=== PATIENT | male | born 1965 | race African-American/Black ===

== ENCOUNTER 2016-11-14 05:15 | Inpatient (IN) | payer OTHER ==
[~2016-11-14] VITALS: Ht 182.9 cm; Wt 60.3 kg
[~2016-11-14 05:15] MED LIST: ASPI-1093 PO; CARB100C4 PO; CARV6 PO; FURO40 PO; ISOS1TAB2 PO; PROM12.510 PO
[2016-11-14 06:23] LABS: EOSINOPHILS % (AUTO) 0 % (1.0-6.0); HEMATOCRIT 38.8 % (41-53); HEMOGLOBIN 11.7 g/dL (13.5-17.5); LYMPHOCYTES # (AUTO) 0.9 K/uL (1.0-4.8); LYMPHOCYTES % (AUTO) 9.7 % (22.0-44.0); MEAN CORPUSCULAR HEMOGLOBIN 23.8 pg (26.0-34.0); MEAN CORPUSCULAR HGB CONC 30.3 G/dL (31.0-37.0); MEAN CORPUSCULAR VOLUME 79 fL (80-100); MONOCYTES # (AUTO) 0.8 K/uL (0.1-1.0); NEUTROPHILS # (AUTO) 7.1 K/uL (1.8-7.7); NEUTROPHILS % (AUTO) 81.3 % (40.0-70.0); PLATELET COUNT (AUTO) 155 K/uL (150-450); RED BLOOD CELL COUNT(AUTO) 4.92 MIL/uL (4.50-5.90); RED CELL DISTRIBUTION WIDTH 22.7 % (11.5-14.5); WHITE BLOOD COUNT (AUTO) 8.8 K/uL (4.5-11.0)
[2016-11-14 06:36] LABS: INR 2.3 (0.9-1.1); PROTHROMBIN TIME 24.1 SEC (9.4-11.6)
[2016-11-14 06:41] LABS: ANION GAP 21 mmol/L (8-16); CARBON DIOXIDE 18 mmol/L (22-29); CHLORIDE 109 mmol/L (98-107); CREATININE 3.06 mg/dL (0.60-1.30); GLOMERULAR FILTR. RATE CALC 26 mL/min (>60); POTASSIUM 4.6 mmol/L (3.5-5.1); SODIUM SERUM 148 mmol/L (136-145); UREA NITROGEN, BLOOD 82 mg/dL (7-18)
[2016-11-14] MEDS ORDERED: NITROGLYCERIN 2% (1 GM=INCH) PACKET TP ONE (07:00)
[2016-11-14] MEDS ORDERED: ASPIRIN 325 MG EC TABLET PO ONE (07:00)
[2016-11-14] MEDS ORDERED: FUROSEMIDE 40 MG/4 ML VIAL IVP ONE ×2 (07:00→19:00)
[2016-11-14 07:06] LABS: ALANINE AMINOTRANSFERASE 93 U/L (12-78); ALBUMIN 3.2 g/dL (3.4-5.0); ASPARTATE AMINOTRANSFERASE 75 U/L (15-37); CREATINE KINASE MB 13.2 ng/mL (0-5); CREATINE KINASE, TOTAL 465 U/L (39-308); TOTAL PROTEIN, SERUM 6.3 g/dL (6.4-8.2)
[2016-11-14 07:12] LABS: B-TYPE NATRIURETIC PEPTIDE > 5000 pg/mL (0-100)
[2016-11-14] MEDS ORDERED: ONDANSETRON HCL 4 MG/2 ML VIAL IVP PRN ×2 (07:45→11:45)
[2016-11-14] MEDS ORDERED: 0.9% SODIUM CHLORIDE 10 ML SYRINGE IVP PRN (07:45)
[2016-11-14] MEDS ORDERED: ACETAMINOPHEN 325 MG TABLET PO PRN ×2 (07:45→11:45)
[2016-11-14 07:59] LABS: APPEARANCE,URINE CLEAR (CLEAR); GLUCOSE, URINE (UA) NEGATIVE (NEGATIVE); KETONES,URINE NEGATIVE (NEGATIVE); LEUKOCYTE ESTERASE ,URINE NEGATIVE (NEGATIVE); OCCULT BLOOD,URINE NEGATIVE (NEGATIVE); PROTEIN,URINE POS 1+ (NEGATIVE)
[2016-11-14 08:03] LABS: ADD UA MICROSCOPIC NO
[2016-11-14 08:31] LABS: RBC MORPHOLOGY COMMENT ABNORMAL RBC MORPH
[2016-11-14] MEDS ORDERED: HYDROCODONE/ACETAMINOPHEN 5-325 MG TABLET PO PRN (11:45)
[2016-11-14] MEDS ORDERED: BISACODYL 10 MG RECTAL RECTAL SUPPOSITORY PR PRN (11:45)
[2016-11-14] MEDS ORDERED: MAGNESIUM HYDROXIDE SUSPENSION 30 ML UDCUP PO PRN (11:45)
[2016-11-14] MEDS ORDERED: MORPHINE SULFATE 2 MG/ML SYRINGE IVP PRN (11:45)
[2016-11-14] MEDS ORDERED: ZOLPIDEM TARTRATE 5 MG TABLET PO PRN (11:45)
[2016-11-14] MEDS ORDERED: PROM25 PO (11:49)
[2016-11-14] MEDS ORDERED: HEPARIN SODIUM 25000 UNITS/D5W 250 ML IV PRN (12:29)
[2016-11-14] MEDS ORDERED: HEPARIN SODIUM,PORCINE 5,000 UNITS/ML VIAL IVP PRN ×2 (13:00)
[2016-11-14 14:35] LABS: ABG A-A DIFF O2 104.3 mmHg (10-20.0); ABG BASE EXCESS -11.8 mmol/L (-2.0-3.0); ABG HCO3 16.9 mmol/L (22.0-26.0); ABG OXYHEMOGLOBIN 96.3 % (94.0-100.0); ABG PH 7.457 (7.35-7.450); TEMPERATURE, FAHRENHEIT, BG 98.6 FAHREN (96.0-98.6)
[2016-11-14 14:36] LABS: ABG PCO2 18 mmHg (35-45)
[2016-11-14 14:37] LABS: IPAP, BG 14 cm H2O
[2016-11-14] MEDS ORDERED: HEPARIN SODIUM,PORCINE 5,000 UNITS/ML VIAL SQ SCH (16:00)
[2016-11-14 16:35] LABS: ABG A-A DIFF O2 28.1 mmHg (10-20.0); ABG BASE EXCESS -10.5 mmol/L (-2.0-3.0); ABG HCO3 17.7 mmol/L (22.0-26.0); ABG OXYHEMOGLOBIN 97.7 % (94.0-100.0); ABG PCO2 20 mmHg (35-45); ABG PH 7.442 (7.35-7.450); TEMPERATURE, FAHRENHEIT, BG 98.6 FAHREN (96.0-98.6)
[2016-11-14 16:36] LABS: ALLEN TEST, BLOOD GAS POS; IPAP, BG 14 cm H2O
[2016-11-14 17:32] VITALS: BP 120/89
[2016-11-14 20:24] VITALS: BP 117/62
[2016-11-14 20:32] LABS: PROTHROMBIN TIME 27.4 SEC (9.4-11.6)
[2016-11-14 20:33] LABS: INR 2.6 (0.9-1.1)
[2016-11-14] MEDS: DOCUSATE SODIUM 100 MG CAPSULE PO SCH (21:23)
[2016-11-14] MEDS: CARVEDILOL 6.25 MG TABLET PO SCH (21:41)
[2016-11-14] MEDS: ISOSORB DINIT/HYDRALAZINE HCL 20-37.5 MG TABLET PO SCH (21:42)
[2016-11-14 23:20] VITALS: BP 105/73
[2016-11-15] VITALS (7 sets, daily range): BP systolic 89–117; BP diastolic 55–84
[2016-11-15 04:17] LABS: EOSINOPHILS % (AUTO) 0 % (1.0-6.0); HEMATOCRIT 33.8 % (41-53); HEMOGLOBIN 10.8 g/dL (13.5-17.5); LYMPHOCYTES # (AUTO) 0.8 K/uL (1.0-4.8); MEAN CORPUSCULAR HEMOGLOBIN 24.3 pg (26.0-34.0); MEAN CORPUSCULAR HGB CONC 31.8 G/dL (31.0-37.0); MEAN CORPUSCULAR VOLUME 77 fL (80-100); MONOCYTES # (AUTO) 0.7 K/uL (0.1-1.0); MONOCYTES % (AUTO) 6.8 % (2.0-9.0); NEUTROPHILS # (AUTO) 8.4 K/uL (1.8-7.7); PLATELET COUNT (AUTO) 119 K/uL (150-450); RED BLOOD CELL COUNT(AUTO) 4.41 MIL/uL (4.50-5.90); RED CELL DISTRIBUTION WIDTH 22.7 % (11.5-14.5); WHITE BLOOD COUNT (AUTO) 9.9 K/uL (4.5-11.0)
[2016-11-15 04:21] LABS: NEUTROPHILS % (AUTO) 85.3 % (40.0-70.0)
[2016-11-15 06:56] LABS: ALBUMIN 2.9 g/dL (3.4-5.0); BILIRUBIN,TOTAL 2.6 mg/dL (0.1-1.0); CALCIUM, TOTAL 8.5 mg/dL (8.8-10.5); CREATININE 2.65 mg/dL (0.60-1.30); POTASSIUM 4.4 mmol/L (3.5-5.1); TOTAL PROTEIN, SERUM 5.6 g/dL (6.4-8.2)
[2016-11-15] MEDS: FUROSEMIDE 40 MG/4 ML VIAL IVP SCH ×2 (08:46→21:00)
[2016-11-15] MEDS: ISOSORB DINIT/HYDRALAZINE HCL 20-37.5 MG TABLET PO SCH (08:47)
[2016-11-15] MEDS: ASPIRIN 81 MG EC TABLET PO SCH (08:48)
[2016-11-15] MEDS: DOCUSATE SODIUM 100 MG CAPSULE PO SCH ×2 (08:48→21:34)
[2016-11-15] MEDS: PANTOPRAZOLE SODIUM 40 MG DR TABLET PO SCH (08:49)
[2016-11-15] MEDS: CarBAMazepine 100 MG CHEWABLE TABLET PO SCH (08:49)
[2016-11-15] MEDS: PROMETHAZINE HCL 25 MG TABLET PO SCH (08:49)
[2016-11-15] MEDS: CARVEDILOL 6.25 MG TABLET PO SCH ×2 (09:00→21:00)
[2016-11-15] MEDS ORDERED: ASPIRIN 81 MG EC TABLET PO SCH (09:00)
[2016-11-15 10:45] LABS: RBC MORPHOLOGY COMMENT ABNORMAL RBC MORPH
[2016-11-15] MEDS ORDERED: HEPARIN SODIUM,PORCINE 5,000 UNITS/ML VIAL IVP ONE (15:45)
[2016-11-15] MEDS ORDERED: HEPARIN SODIUM,PORCINE 5,000 UNITS/ML VIAL IVP PRN ×2 (15:45)
[2016-11-15 16:20] LABS: EOSINOPHILS # (AUTO) 0.01 K/uL (0.00-0.70); EOSINOPHILS % (AUTO) 0.09 % (1.0-6.0); HEMATOCRIT 33.3 % (41-53); HEMOGLOBIN 10.4 g/dL (13.5-17.5); LYMPHOCYTES # (AUTO) 0.4 K/uL (1.0-4.8); LYMPHOCYTES % (AUTO) 3.9 % (22.0-44.0); MEAN CORPUSCULAR HGB CONC 31.3 G/dL (31.0-37.0); MEAN CORPUSCULAR VOLUME 77 fL (80-100); MONOCYTES # (AUTO) 0.6 K/uL (0.1-1.0); NEUTROPHILS # (AUTO) 9.2 K/uL (1.8-7.7); RED BLOOD CELL COUNT(AUTO) 4.35 MIL/uL (4.50-5.90); RED CELL DISTRIBUTION WIDTH 22.2 % (11.5-14.5); WHITE BLOOD COUNT (AUTO) 10.2 K/uL (4.5-11.0)
[2016-11-15 16:21] LABS: NEUTROPHILS % (AUTO) 90.1 % (40.0-70.0)
[2016-11-15 16:30] LABS: INR 1.9 (0.9-1.1); PROTHROMBIN TIME 19.9 SEC (9.4-11.6)
[2016-11-15 16:41] LABS: PLATELET COUNT (AUTO) 121 K/uL (150-450)
[2016-11-15 16:42] LABS: RBC MORPHOLOGY COMMENT ABNORMAL RBC MORPH
[2016-11-15] MEDS ORDERED: 0.9% SODIUM CHLORIDE 10 ML SYRINGE IVP PRN (18:15)
[2016-11-15] MEDS: HEPARIN SODIUM 25000 UNITS/D5W 250 ML IV PRN (21:34)
[2016-11-15] MEDS: OXYGEN THERAPY IH SCH (21:47)
[2016-11-16 03:56] VITALS: BP 98/66
[2016-11-16 07:18] LABS: ALBUMIN 3.1 g/dL (3.4-5.0); BILIRUBIN,TOTAL 2.7 mg/dL (0.1-1.0); CALCIUM, TOTAL 8.8 mg/dL (8.8-10.5); CREATININE 2.82 mg/dL (0.60-1.30); POTASSIUM 4.5 mmol/L (3.5-5.1); TOTAL PROTEIN, SERUM 6.1 g/dL (6.4-8.2)
[2016-11-16 07:51] VITALS: BP 105/78
[2016-11-16 08:54] LABS: BASOPHILS # (AUTO) 0.02 K/uL (0.00-0.20); BASOPHILS % (AUTO) 0.2 % (0.0-2.0); EOSINOPHILS # (AUTO) 0.01 K/uL (0.00-0.70); EOSINOPHILS % (AUTO) 0.13 % (1.0-6.0); HEMATOCRIT 35.3 % (41-53); HEMOGLOBIN 11.2 g/dL (13.5-17.5); LYMPHOCYTES # (AUTO) 0.4 K/uL (1.0-4.8); LYMPHOCYTES % (AUTO) 3.9 % (22.0-44.0); MEAN CORPUSCULAR HEMOGLOBIN 24.3 pg (26.0-34.0); MEAN CORPUSCULAR HGB CONC 31.7 G/dL (31.0-37.0); MEAN CORPUSCULAR VOLUME 77 fL (80-100); MONOCYTES # (AUTO) 0.8 K/uL (0.1-1.0); MONOCYTES % (AUTO) 8.1 % (2.0-9.0); NEUTROPHILS # (AUTO) 8.2 K/uL (1.8-7.7); PLATELET COUNT (AUTO) 83 K/uL (150-450); RED BLOOD CELL COUNT(AUTO) 4.59 MIL/uL (4.50-5.90); RED CELL DISTRIBUTION WIDTH 22.6 % (11.5-14.5); WHITE BLOOD COUNT (AUTO) 9.4 K/uL (4.5-11.0)
[2016-11-16 08:56] LABS: NEUTROPHILS % (AUTO) 87.7 % (40.0-70.0)
[2016-11-16] MEDS: CARVEDILOL 6.25 MG TABLET PO SCH ×2 (09:00→20:33)
[2016-11-16] MEDS: DOCUSATE SODIUM 100 MG CAPSULE PO SCH ×2 (09:04→20:33)
[2016-11-16] MEDS: OXYGEN THERAPY IH SCH ×2 (09:04→20:33)
[2016-11-16] MEDS: PROMETHAZINE HCL 25 MG TABLET PO SCH (09:04)
[2016-11-16] MEDS: ASPIRIN 81 MG EC TABLET PO SCH (09:05)
[2016-11-16] MEDS: CarBAMazepine 100 MG CHEWABLE TABLET PO SCH (09:05)
[2016-11-16] MEDS: PANTOPRAZOLE SODIUM 40 MG DR TABLET PO SCH (09:05)
[2016-11-16] MEDS: FUROSEMIDE 40 MG/4 ML VIAL IVP SCH (09:08)
[2016-11-16 09:10] LABS: RBC MORPHOLOGY COMMENT ABNORMAL RBC MORPH
[2016-11-16] MEDS ORDERED: ALBUMIN HUMAN 25%-25GM/100ML 100 ML IV ONE (09:30)
[2016-11-16] MEDS: HEPARIN SODIUM 25000 UNITS/D5W 250 ML IV PRN ×2 (10:13→17:25)
[2016-11-16 10:52] VITALS: BP 114/80
[2016-11-16] MEDS ORDERED: *CLINICAL-WARFARIN SODIUM DOSING CLINICAL ONE ×2 (11:30)
[2016-11-16] MEDS ORDERED: WARFARIN SODIUM-INR 2.0-3.0-RX DOSING PER PROTOCOL PO PRN (12:15)
[2016-11-16 15:38] VITALS: BP 132/76
[2016-11-16 16:55] LABS: INR 1.8 (0.9-1.1); PROTHROMBIN TIME 19.4 SEC (9.4-11.6)
[2016-11-16] MEDS ORDERED: WARFARIN SODIUM 5 MG TABLET PO ONE (17:00)
[2016-11-16] MEDS ORDERED: WARFARIN SODIUM 2.5 MG TABLET PO ONE (18:00)
[2016-11-16 19:43] VITALS: BP 114/85
[2016-11-16 23:59] VITALS: BP 112/73
[2016-11-17] MEDS: HEPARIN SODIUM 25000 UNITS/D5W 250 ML IV PRN ×3 (02:02→12:28)
[2016-11-17 05:08] VITALS: BP 101/76
[2016-11-17 08:32] LABS: BASOPHILS % (AUTO) 0.1 % (0.0-2.0); EOSINOPHILS % (AUTO) 0 % (1.0-6.0); HEMOGLOBIN 11.1 g/dL (13.5-17.5); LYMPHOCYTES # (AUTO) 0.5 K/uL (1.0-4.8); LYMPHOCYTES % (AUTO) 5.2 % (22.0-44.0); MEAN CORPUSCULAR HGB CONC 30.9 G/dL (31.0-37.0); MEAN CORPUSCULAR VOLUME 78 fL (80-100); MONOCYTES # (AUTO) 0.9 K/uL (0.1-1.0); MONOCYTES % (AUTO) 9.8 % (2.0-9.0); NEUTROPHILS # (AUTO) 7.7 K/uL (1.8-7.7); NEUTROPHILS % (AUTO) 84.9 % (40.0-70.0); PLATELET COUNT (AUTO) 117 K/uL (150-450); RED BLOOD CELL COUNT(AUTO) 4.64 MIL/uL (4.50-5.90); RED CELL DISTRIBUTION WIDTH 22.4 % (11.5-14.5)
[2016-11-17 08:36] LABS: RBC MORPHOLOGY COMMENT ABNORMAL RBC MORPH
[2016-11-17 08:44] LABS: CALCIUM, TOTAL 8.8 mg/dL (8.8-10.5); CREATININE 3.09 mg/dL (0.60-1.30)
[2016-11-17] MEDS: FUROSEMIDE 40 MG/4 ML VIAL IVP SCH (09:00)
[2016-11-17 09:17] VITALS: BP 109/78
[2016-11-17 09:19] LABS: INR 2.2 (0.9-1.1); PROTHROMBIN TIME 22.8 SEC (9.4-11.6)
[2016-11-17] MEDS: OXYGEN THERAPY IH SCH ×2 (09:26→21:33)
[2016-11-17] MEDS: CARVEDILOL 6.25 MG TABLET PO SCH (09:26)
[2016-11-17] MEDS: DOCUSATE SODIUM 100 MG CAPSULE PO SCH ×2 (09:26→21:37)
[2016-11-17] MEDS: CarBAMazepine 100 MG CHEWABLE TABLET PO SCH (09:27)
[2016-11-17] MEDS: PROMETHAZINE HCL 25 MG TABLET PO SCH (09:27)
[2016-11-17] MEDS: ASPIRIN 81 MG EC TABLET PO SCH (09:27)
[2016-11-17] MEDS: PANTOPRAZOLE SODIUM 40 MG DR TABLET PO SCH (09:27)
[2016-11-17] MEDS: CARVEDILOL 3.125 MG TABLET PO SCH ×2 (10:23→21:37)
[2016-11-17 10:56] VITALS: BP 119/76
[2016-11-17 12:04] LABS: ALPHA-1 URINE (ELP) 1.3 %; ALPHA-2 URINE(ELP) 5.8 %; BETA URINE(ELP) 11.7 %; GAMMA URINE(ELP) 27.5 %; TOTAL PROTEIN URINE 7.8 mg/dL (Not Estab.)
[2016-11-17 15:09] VITALS: BP 128/73
[2016-11-17] MEDS ORDERED: WARFARIN SODIUM 1 MG TABLET PO ONE (17:00)
[2016-11-17 19:23] VITALS: BP 103/77
[2016-11-17 23:35] VITALS: BP 99/72
[2016-11-18] VITALS (9 sets, daily range): BP systolic 83–128; BP diastolic 63–78
[2016-11-18 06:30] LABS: CALCIUM, TOTAL 8.9 mg/dL (8.8-10.5); CREATININE 3.23 mg/dL (0.60-1.30); POTASSIUM 5.1 mmol/L (3.5-5.1)
[2016-11-18 08:20] LABS: PROTHROMBIN TIME 31.4 SEC (9.4-11.6)
[2016-11-18] MEDS: DOCUSATE SODIUM 100 MG CAPSULE PO SCH ×2 (08:58→21:32)
[2016-11-18] MEDS: OXYGEN THERAPY IH SCH ×2 (08:58→21:32)
[2016-11-18] MEDS: CARVEDILOL 3.125 MG TABLET PO SCH ×2 (08:58→21:32)
[2016-11-18] MEDS: PANTOPRAZOLE SODIUM 40 MG DR TABLET PO SCH (08:59)
[2016-11-18] MEDS: ASPIRIN 81 MG EC TABLET PO SCH (08:59)
[2016-11-18] MEDS: PROMETHAZINE HCL 25 MG TABLET PO SCH (08:59)
[2016-11-18] MEDS: CarBAMazepine 100 MG CHEWABLE TABLET PO SCH (08:59)
[2016-11-18] MEDS: FUROSEMIDE 40 MG/4 ML VIAL IVP SCH (09:00)
[2016-11-18] MEDS: DEXTROSE 5%-WATER 1,000 ML IV SCH (11:41)
[2016-11-19] MEDS: DEXTROSE 5%-WATER 1,000 ML IV SCH (03:54)
[2016-11-19 05:01] VITALS: BP 119/68
[2016-11-19 06:52] LABS: PROTHROMBIN TIME 46.5 SEC (9.4-11.6)
[2016-11-19 06:57] LABS: EOSINOPHILS % (AUTO) 0.2 % (1.0-6.0); HEMATOCRIT 38.4 % (41-53); HEMOGLOBIN 11.6 g/dL (13.5-17.5); LYMPHOCYTES # (AUTO) 0.6 K/uL (1.0-4.8); MEAN CORPUSCULAR HEMOGLOBIN 23.8 pg (26.0-34.0); MEAN CORPUSCULAR HGB CONC 30.3 G/dL (31.0-37.0); MEAN CORPUSCULAR VOLUME 79 fL (80-100); MONOCYTES # (AUTO) 0.7 K/uL (0.1-1.0); MONOCYTES % (AUTO) 7.5 % (2.0-9.0); NEUTROPHILS # (AUTO) 7.9 K/uL (1.8-7.7); PLATELET COUNT (AUTO) 100 K/uL (150-450); RED BLOOD CELL COUNT(AUTO) 4.89 MIL/uL (4.50-5.90); RED CELL DISTRIBUTION WIDTH 23.8 % (11.5-14.5)
[2016-11-19 07:00] LABS: INR 4.4 (0.9-1.1)
[2016-11-19 07:01] LABS: ALBUMIN 2.8 g/dL (3.4-5.0); BILIRUBIN,TOTAL 2.9 mg/dL (0.1-1.0); CALCIUM, TOTAL 8.5 mg/dL (8.8-10.5); CREATININE 3.86 mg/dL (0.60-1.30); POTASSIUM 5.6 mmol/L (3.5-5.1); TOTAL PROTEIN, SERUM 5.5 g/dL (6.4-8.2)
[2016-11-19 07:24] VITALS: BP 85/52
[2016-11-19 07:27] LABS: NEUTROPHILS % (AUTO) 86.3 % (40.0-70.0); WHITE BLOOD COUNT (AUTO) 11.2 K/uL (4.5-11.0)
[2016-11-19] MEDS: OXYGEN THERAPY IH SCH ×2 (08:00→20:40)
[2016-11-19 08:12] LABS: RBC MORPHOLOGY COMMENT ABNORMAL RBC MORPH
[2016-11-19 08:27] VITALS: BP 76/57
[2016-11-19] MEDS ORDERED: SODIUM CHLORIDE 0.9% 1,000 ML IV ONE (08:36)
[2016-11-19] MEDS: DOCUSATE SODIUM 100 MG CAPSULE PO SCH ×2 (09:00→20:40)
[2016-11-19] MEDS: CarBAMazepine 100 MG CHEWABLE TABLET PO SCH (09:00)
[2016-11-19] MEDS: PROMETHAZINE HCL 25 MG TABLET PO SCH (09:00)
[2016-11-19] MEDS: CARVEDILOL 3.125 MG TABLET PO SCH (09:00)
[2016-11-19] MEDS ORDERED: SODIUM POLYSTYRENE SULFONATE 15 GM/60 ML SUSPENSION BOTTLE PR ONE (09:00)
[2016-11-19] MEDS: ASPIRIN 81 MG EC TABLET PO SCH (09:00)
[2016-11-19] MEDS ORDERED: INSULIN REGULAR, HUMAN 100 UNITS/ML IVP ONE (09:30)
[2016-11-19] MEDS ORDERED: DOPamine HCL 400 MG/D5%-WATER 250 ML IV PRN (09:30)
[2016-11-19] MEDS ORDERED: CALCIUM GLUCONATE 100 MG/ML 10 ML IVP ONE (09:30)
[2016-11-19 09:34] LABS: ABG A-A DIFF O2 37.7 mmHg (10-20.0); ABG BASE EXCESS -8.7 mmol/L (-2.0-3.0); ABG HCO3 18.8 mmol/L (22.0-26.0); ABG OXYHEMOGLOBIN 97.7 % (94.0-100.0); ABG PCO2 23 mmHg (35-45); ABG PH 7.449 (7.35-7.450); ALLEN TEST, BLOOD GAS Positive; TEMPERATURE, FAHRENHEIT, BG 98.6 FAHREN (96.0-98.6)
[2016-11-19] MEDS ORDERED: NOREPINEPHRINE 4 MG/D5%-WATER 250 ML IV PRN (09:46)
[2016-11-19] MEDS ORDERED: PHENYLEPHRINE 200 MG/D5%-WATER 250 ML IV PRN (09:46)
[2016-11-19] MEDS ORDERED: SODIUM CHLORIDE 0.9% 2,000 ML IV ONE (10:51)
[2016-11-19] MEDS: FUROSEMIDE 40 MG/4 ML VIAL IVP SCH (11:36)
[2016-11-19 12:00] VITALS: BP 90/68
[2016-11-19 12:09] LABS: TROPONIN I 0.26 ng/mL (0.00-0.05)
[2016-11-19 14:58] LABS: CALCIUM, TOTAL 8.1 mg/dL (8.8-10.5); CREATININE 4.09 mg/dL (0.60-1.30); MAGNESIUM 2.9 mg/dL (1.80-2.40); POTASSIUM 4.9 mmol/L (3.5-5.1)
[2016-11-19 15:55] LABS: PHOSPHORUS 9.6 mg/dL (2.5-4.9)
[2016-11-19 16:00] VITALS: BP 114/79
[2016-11-19] MEDS ORDERED: PROPOFOL 1000 MG/ISO-OSM 100 ML IV PRN (17:50)
[2016-11-19] MEDS ORDERED: PIPERACILLIN SODIUM/TAZOBACTAM 4.5 GM in DEXTROSE 5%-WATER 100 ML IV SCH (19:00)
[2016-11-19 19:13] LABS: ABG A-A DIFF O2 364.3 mmHg (10-20.0); ABG BASE EXCESS -6.1 mmol/L (-2.0-3.0); ABG HCO3 20.7 mmol/L (22.0-26.0); ABG OXYHEMOGLOBIN 98.2 % (94.0-100.0); ABG PCO2 20 mmHg (35-45); TEMPERATURE, FAHRENHEIT, BG 94.5 FAHREN (96.0-98.6)
[2016-11-19 19:14] LABS: ALLEN TEST, BLOOD GAS POS
[2016-11-19] MEDS ORDERED: SODIUM CHLORIDE 0.9% 250 ML IV ONE (19:56)
[2016-11-19 20:00] VITALS: BP 110/58
[2016-11-19] MEDS: POTASSIUM CHLORIDE 20 MEQ in NXSTAGE RFP-402 K0/CA3 5,000 ML IRRIG PRN ×2 (20:44→20:45)
[2016-11-19] MEDS ORDERED: ATROPINE SULFATE 0.1 MG/ML 10 ML SYRINGE IVP ONE ×2 (22:45→22:59)
[2016-11-19] MEDS ORDERED: EPINEPHrine 1:10,000 [1 MG/10 ML] SYRINGE IVP ONE ×2 (22:59)
[2016-11-19] MEDS ORDERED: 0.9% SODIUM CHLORIDE 250 ML BAG IV ONE (22:59)
[2016-11-19] MEDS ORDERED: SODIUM BICARBONATE [ADULT] 8.4% 50 MEQ/50 ML SYRINGE IVP ONE (22:59)
[2016-11-19 23:57] LABS: GLUCOSE,POINT OF CARE 106 MG/DL (70-110)
[2016-11-20 04:57] LABS: GLUCOSE,POINT OF CARE 114 MG/DL (70-110)
[2016-11-20] MEDS ORDERED: PANTOPRAZOLE SODIUM 40 MG/VIAL IVP SCH (09:00)
[2016-12-04 16:48] LABS: GLUCOSE,POINT OF CARE 70 MG/DL (70-110)
== END 2016-11-19 23:00 | disposition expired | DRG 194 ==
LOC: EMS 05:16 → 5S 16:10 → 5N 11-17 08:10 → ICU 11-19 10:05
PROVIDERS: ADMIT Internal Medicine; ATTEND Internal Medicine
PROC: 5A09357 Assistance with Respiratory Ventilation, Less than 24 Consecutive Hours, Continuous Positive Airway Pressure (ICD-10-PCS; 2016-11-14)
PROC: 02HV33Z Insertion of Infusion Device into Superior Vena Cava, Percutaneous Approach (ICD-10-PCS; principal; 2016-11-19)
PROC: 5A1935Z Respiratory Ventilation, Less than 24 Consecutive Hours (ICD-10-PCS; 2016-11-19)
PROC: 5A1D60Z (ICD-10-PCS; 2016-11-19)
PROC: B548ZZA Ultrasonography of Superior Vena Cava, Guidance (ICD-10-PCS; 2016-11-19)
PROC: 0BH17EZ Insertion of Endotracheal Airway into Trachea, Via Natural or Artificial Opening (ICD-10-PCS; 2016-11-19)
PROC: 5A12012 Performance of Cardiac Output, Single, Manual (ICD-10-PCS; 2016-11-19)
PROC: 06HM33Z Insertion of Infusion Device into Right Femoral Vein, Percutaneous Approach (ICD-10-PCS; 2016-11-19)
DX: I13.0 Hypertensive heart and chronic kidney disease with heart failure and stage 1 through stage 4 chronic kidney disease, or unspecified chronic kidney disease (principal); J96.00 Acute respiratory failure, unspecified whether with hypoxia or hypercapnia; E43 Unspecified severe protein-calorie malnutrition; A41.9 Sepsis, unspecified organism; I47.2 Ventricular tachycardia; N18.4 Chronic kidney disease, stage 4 (severe); N17.9 Acute kidney failure, unspecified; D69.6 Thrombocytopenia, unspecified; E87.5 Hyperkalemia; I46.9 Cardiac arrest, cause unspecified; I49.01 Ventricular fibrillation; E16.2 Hypoglycemia, unspecified; I50.23 Acute on chronic systolic (congestive) heart failure; N05.9 Unspecified nephritic syndrome with unspecified morphologic changes; E87.0 Hyperosmolality and hypernatremia; I82.B12 Acute embolism and thrombosis of left subclavian vein; I25.10 Atherosclerotic heart disease of native coronary artery without angina pectoris; G40.909 Epilepsy, unspecified, not intractable, without status epilepticus; R33.9 Retention of urine, unspecified; F99 Mental disorder, not otherwise specified; D64.9 Anemia, unspecified; E78.5 Hyperlipidemia, unspecified; R74.0 Nonspecific elevation of levels of transaminase and lactic acid dehydrogenase [LDH]; Z68.1 Body mass index [BMI] 19.9 or less, adult; I25.5 Ischemic cardiomyopathy; Z79.899 Other long term (current) drug therapy; Z79.82 Long term (current) use of aspirin; Z82.49 Family history of ischemic heart disease and other diseases of the circulatory system; Z85.028 Personal history of other malignant neoplasm of stomach; Z95.810 Presence of automatic (implantable) cardiac defibrillator; Z95.1 Presence of aortocoronary bypass graft
CPT/HCPCS: 70450; 76700; 76770; 82570; 82803; 82805; 82962; 83735; 84100; 84156; 84166; 84300; 84540; 86704; 86706; 86900; 86901; 87040; 87081; 87340; 90947; 92950; 93005; 93970; 93971; 94002; 94660; 96365; 96366; 96375; 99285; G0480; J0171; J0461; J1644; J1815; J1940; J2370; J2543; J2704; J3480; J3490; J7030; J7050; J7060; P9046